=== PATIENT | female | born 1955 | race Caucasian/White ===

== ENCOUNTER 2022-03-29 17:48 | Emergency (ER) | payer MEDICARE, OTHER ==
[~2022-03-29] VITALS: Ht 152.4 cm; Wt 74.8 kg
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
[2022-03-29] MEDS ORDERED: HYDROCODONE/APAP 5/325MG TABLET ONE ×2 (18:35→20:21)
[2022-03-29] MEDS ORDERED: ONDANSETRON 4 MG TAB.RAPDIS ONE ×2 (18:36→20:21)
[2022-03-29] MEDS ORDERED: ACETAMINOPHEN 325 MG TABLET ONE (18:59)
[2022-03-29] MEDS ORDERED: HYDROCODONE/APAP 5/325MG TABLET PO ONE ×2 (19:00→20:00)
[2022-03-29] MEDS ORDERED: ACETAMINOPHEN 325 MG TABLET PO ONE (19:00)
[2022-03-29] MEDS ORDERED: ONDANSETRON 4 MG TAB.RAPDIS SL ONE ×2 (19:00→20:00)
--- NOTE | 2022-03-29 19:19 | NUR ---
X-RAY TECH AT BED SIDE
--- NOTE | 2022-03-29 19:33 | NUR ---
[employer] AT PT'S BEDSIDE
--- NOTE | 2022-03-29 19:43 | NUR ---
DELMY ORTIZ ON THE PHONE WITH DR REYES FOR ORTHO CONSULT
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
[2022-03-29] MEDS ORDERED: IBUP-1955 PO (20:16)
[2022-03-29] MEDS ORDERED: HYDR-4303 PO (20:16)
--- NOTE | 2022-03-29 20:45 | NUR ---
Patient discharged to home in stable condition. Written and verbal after care instructions given. Patient verbalizes understanding of instruction.
[2022-03-29 20:46] VITALS: BP 145/82
== END 2022-03-29 20:38 | disposition home or self-care (01) ==
LOC: ER 18:00
DX: S52.515A Nondisplaced fracture of left radial styloid process, initial encounter for closed fracture (principal); M54.50 Low back pain, unspecified; R07.89 Other chest pain; M25.571 Pain in right ankle and joints of right foot; M25.511 Pain in right shoulder; I10 Essential (primary) hypertension; V43.92XA Unspecified car occupant injured in collision with other type car in traffic accident, initial encounter; Y93.89 Activity, other specified; Y92.413 State road as the place of occurrence of the external cause; Y99.8 Other external cause status
CPT/HCPCS: 99284; 71045; 29125; 72110; 73610; 73030; 73110; Q0162